=== PATIENT | male | born 1980 | race Two or more races ===

== ENCOUNTER 2024-09-05 08:20 | Emergency (ER) | payer MEDICAID, SELFPAY ==
[2024-09-05 08:29] VITALS: BP 130/84; PULSE 127; RESP 18; TEMP 38.1; O2SAT 97
--- NOTE | 2024-09-05 08:41 | XR_ITS ---
Examination: PA lateral chest 2 views TECHNIQUE: Upright PA lateral chest 2 views Exam date and time: September 05, 2024 0859 hours Comparison March 02, 2021 INDICATIONS: Coughing fever chest pain today FINDINGS: Normal heart size Lungs are clear. The osseous structures are intact IMPRESSION: No active disease
--- NOTE | 2024-09-05 08:42 | EDNOTE_ITS ---
Upper Respiratory Inf. RME/HPI General Chief Complaint: Flu Like Symptoms Stated Complaint: FEVER, SORE THROAT, GREENE, BODYACHES, SOB, BACK PAIN Time Seen by Provider: 09/05/24 08:41 Source: patient Arrival date/time: 09/05/24 08:20 43-year-old male with no known medical history presents to the emergency room with a chief complaint of a fever, sore throat, headache, shortness of breath x 2 days. Mode of arrival: ambulatory Limitations: no limitations Related Data Previous Rx's ?Medication ?Instructions ?Recorded ibuprofen 800 mg tablet 800 mg PO TID PRN pain #30 tabs 04/27/22 acetaminophen 325 mg capsule 650 mg (2 x 325 mg) PO QID PRN 09/05/24 fever or pain 7 days #30 caps penicillin V potassium 500 mg 500 mg PO BID 10 days #20 tabs 09/05/24 tablet Allergies Allergy/AdvReac Type Severity Reaction Status Date / Time No Known Allergies Allergy Verified 04/27/22 07:33 Review of Systems Review of Systems Systems Reviewed: All systems reviewed, normal except as documented Constitutional Constitutional: Reports system reviewed and no additional complaints, except as documented, Denies fatigue, Denies fever(s), Reports headache(s) and Denies weakness Eyes Eyes: Reports system reviewed and no additional complaints, except as documented, Denies blurry vision and Denies change in vision ENT Ears, Nose, Mouth, and Throat: Reports system reviewed and no additional complaints, except as documented, Denies otalgia, Reports headache(s), Reports nasal congestion, Reports sore throat and Denies vertigo Cardiovascular Cardiovascular: Reports system reviewed and no additional complaints, except as documented, Denies chest pain, Reports dyspnea and Denies dyspnea on exertion Respiratory Respiratory: Reports system reviewed and no additional complaints, except as documented, Reports chest congestion, Reports cough, Reports dyspnea, Denies dyspnea on exertion and Denies wheezing Gastrointestinal Gastrointestinal: Reports system reviewed and no additional complaints, except as documented, Denies abdominal pain, Denies cramping, Denies nausea and Denies vomiting Genitourinary Genitourinary: Reports system reviewed and no additional complaints, except as documented, Denies dysuria and Denies hematuria Musculoskeletal Musculoskeletal: Reports system reviewed and no additional complaints, except as documented and Denies back pain Integumentary/Breasts Skin/Breast: Reports system reviewed and no additional complaints, except as documented and Denies wounds Neurologic Neurologic: Reports system reviewed and no additional complaints, except as do cumented, Denies confusion, Reports headache(s), Denies lack of coordination, Denies vertigo and Denies weakness Psychiatric Psychiatric: Reports system reviewed and no additional complaints, except as documented, Denies anxiety, Denies confusion, Denies depression, Denies paranoia, Denies suicidal ideation and Denies tactile hallucinations Endocrine Endocrine: Reports system reviewed and no additional complaints, except as documented and Denies fatigue Hematologic/Lymphatic Hematologic/Lymphatic: Reports system reviewed and no additional complaints, except as documented and Denies lymphadenopathy Allergic/Immunologic Allergic/Immunologic: Reports system reviewed and no additional complaints, except as documented, Denies urticaria and Denies wheezing Past Medical History Past Medical History NEUROLOGIC: Positive Migraine and Head Trauma (CLINIC VISIT AT 14 YRS OLD FELL HAD HEAD STITCHES); Negative Neurological Disorders or Seizures CARDIAC: Negative Cardiac Disorders or Congestive Heart Failure RESPIRATORY: Negative Chronic Obstructive Pulmonary Disease (COPD) or Asthma GASTROINTESTINAL: Positive Gastrointestinal Disorders, Gall Bladder Disease, Hemorrhoids and Gastroesophageal Reflux Disease; Negative Hepatitis GENITOURINARY: Negative Genitourinary Disorders or Renal Disease MUSCULOSKELETAL: Positive Musculoskeletal Disorders ENT: Positive Head Trauma (CLINIC VISIT AT 14 YRS OLD FELL HAD HEAD STITCHES) ENDOCRINE: Negative Endocrine Disorders, Diabetes Mellitus Type 1 or Diabetes Mellitus Type 2 HEMATOLOGIC: Negative Blood Disorders or Sickle Cell Disease OTHER HISTORY: Positive Chicken Pox, Measles and Mumps; Negative Hospitalization, Autoimmune Disease, Shingles, Falls, Blood Transfusions, Blood Transfusion Reaction, Anesthesia Reactions, Chemotherapy, Radiation Therapy, MRSA or Cancer Family History FAMILY HISTORY: Positive Family Cardiac Disorders (mother-HTN); Negative Family Psychiatric Problems, Family Respiratory Disorders, Family Gastrointestinal Problems, Family Cancer, Family Surgery or Family Anesthesia Reaction Social History SMOKING STATUS: Never smoker ED Exam General Limitations: Present no limitations General appearance: Present alert and in no apparent distress Head Head exam: Present atraumatic Eye Eye exam: Present normal appearance, PERRL and EOMI ENT ENT exam: Present normal exam, normal oropharynx, mucous membranes moist, mucous membranes dry, TM's normal bilaterally and normal external ear exam Expanded ENT Exam Teeth exam: Present normal inspection Throat exam: Present tonsillar erythema and tonsillar exudate Neck Neck exam: Present normal inspection, full ROM and trachea midline Chest Chest inspection: Present normal inspection and symmetric chest wall rise Respiratory Respiratory exam: Present normal lung sounds bilaterally; Absent respiratory distress, wheezes, stridor, accessory muscle use or prolonged expiratory phase Cardiovascular Cardiovascular exam: Present regular rate, normal rhythm and normal heart sounds Abdominal Exam Abdominal exam: Present soft and normal bowel sounds Extremities Exam Extremities exam: Present normal inspection and full ROM Back Exam Back exam: Present normal inspection and full ROM Neurological Exam Neurological exam: Present alert, oriented X3 and CN II-XII intact Psychiatric Psychiatric exam: Present normal affect and normal mood Skin Skin exam: Present warm, dry, intact and normal color Course Quality Measures none Orders Category Date Time Status Bedside COVID-19 Antigen Test NOW Care 09/05/24 08:41 Completed Bedside Influenza A&B Antigen Test NOW Care 09/05/24 08:41 Completed XR chest 2V Stat Exams 09/05/24 08:41 Completed Strep A Rapid Stat Lab 09/05/24 08:53 Completed Acetaminophen Tab [Tylenol ES Tab] Med 09/05/24 08:41 Discontinued 1,000 mg PO X1 ONE Ketorolac Inj [Toradol Inj] Med 09/05/24 08:41 Discontinued 30 mg IM X1 ONE Vital Signs Vital signs: Vital Signs Temperature 100.5 F H 09/05/24 08:29 Pulse Rate 127 H 09/05/24 08:29 Respiratory Rate 18 09/05/24 08:29 Blood Pressure 130/84 09/05/24 08:29 Pulse Oximetry (%) 97 09/05/24 08:29 Oxygen Delivery Method Room Air 09/05/24 08:29 O2 saturation 97% within normal limits Upper Respiratory Infection MDM Narrative MDM Narrative:: 43-year-old male with no known medical history presents to the emergency room with a chief complaint of a fever, sore throat, headache, shortness of breath x 2 days. Clinically the patient appears nontoxic and in no apparent distress. Physical examination shows nasal congestion and an erythemic posterior pharynx with a cobblestone appearance with mild exudates to the right tonsillar pillar. Strep test was positive. COVID-19 and influenza were negative. Chest x-ray was negative. Patient was discharged and educated to follow-up with primary care provider and return to the emergency room for any evidence of worsening signs or symptoms Patient data External records reviewed:: [facility] previous records Clinical information provided by:: patient Social determinants that could affect healthcare access:: none Patient has the following chronic illnesses:: No chronic illness How is presenting disease/condition affected by chronic disease/condition?: no chronic disease Evaluation data The following diagnostics were reviewed and interpreted by me:: lab results and radiology exam(s) Lab and/or radiology exams considered but not ordered:: Labs and radiology exams considered and ordered Interpretation Summary: Chest x-ray-no pneumonic infiltrates Medications / Prescriptions Medications or Prescriptions considered but not ordered:: Medication given Medication administrations:: Medication Administration History Discontinued Medications Acetaminophen (Acetaminophen 500 Mg Tablet) 1,000 mg PO X1 ONE Stop: 09/05/24 08:42 Last Admin: 09/05/24 08:55 Dose: 1,000 mg Documented By: [facility] Ketorolac Tromethamine (Ketorolac Inj 60 Mg/2 Ml Vial) 30 mg IM X1 ONE Stop: 09/05/24 08:42 Last Admin: 09/05/24 08:56 Dose: 30 mg Documented By: [facility] Medication given Consultations Consultation(s) initiated? (list below): No Diagnosis Upper Respiratory Differential Diagnosis: upper respiratory infection, otitis media, sinusitis, viral infection, influenza and pharyngitis Most likely diagnosis given after review of the tests above:: Pharyngitis Admission Indicated Admission indicated?: not indicated Admission Request Was there a request for admission?: No Disposition Plan Disposition Plan: Discharge Discharge Attestation Discharge Attestation: The patient and all family members were given an opportunity to ask questions and understood the discharge instructions. Discharge instructions specifically effects, indications for sooner follow up or return to the emergency department, and the expected course of current diagnosis. Patient condition: Stable Discharge Plan Plan Patient Disposition: HOME (Self Care) Disposition Comment: Stable Prescriptions/Referrals Prescriptions/Med Rec: New penicillin V potassium 500 mg tablet 500 mg PO BID 10 Days Qty: 20 0RF acetaminophen 325 mg capsule 650 mg PO QID PRN (Reason: fever or pain) 7 Days Qty: 30 0RF No Action ibuprofen 800 mg tablet 800 mg PO TID PRN (Reason: pain) Qty: 30 0RF Referrals: Cayden Vaca PA-C [Primary Care Provider] - In 1 week Problem List Clinical Impression: Pharyngitis Patient/Caregiver Discharge Instructions Education Materials: Self-Care for Sore Throats, ED Pharyngitis, Report Pending Additional Instructions: Jil un seguimiento con parrish proveedor de atenci?n primaria en las pr?ximas 24 a 48 horas. Parrihs prueba de estreptococos reed positivo para marianna infecci?n. Los antibi?ticos fueron enviados a parrish farmacia por favor rec?jalos y t?melos emily se indica. Si hay evidencia de signos o s?ntomas que empeoran, regrese a la alondra de emergencias de inmediato. Print Language: English Stand Alone Forms: Ju Award Info., Patient Portal Info Letter PA/HEAD WAITER/WAITRESS Supervising Physician PA/HEAD WAITER/WAITRESS Supervising Physician: Dr Erazo
[2024-09-05 08:55] VITALS: TEMP 38.1
[2024-09-05] MEDS: ACETAMINOPHEN 500 MG TABLET 1000 MG PO (08:55)
[2024-09-05 08:56] VITALS: BMI 27.3
[2024-09-05] MEDS: KETOROLAC INJ 60 MG/2 ML VIAL 30 MG IM (08:56)
[2024-09-05 09:47] LABS: Strep A Rapid Positive (Negative)
== END 2024-09-05 10:13 | disposition home or self-care (01) ==
PROVIDERS: Nurse Practitioner Family; Emergency Provider Emergency Medicine; PCP Family Medicine
DX: J02.9 Acute pharyngitis, unspecified (principal)
CPT/HCPCS: 71046; 87400; 87651; 87811; 96372; 99283; J1885; A9270

== ENCOUNTER 2025-01-19 07:29 | Emergency (ER) | payer MEDICAID, SELFPAY ==
[2025-01-19 07:38] VITALS: BP 121/79; PULSE 73; RESP 16; TEMP 37.1; O2SAT 98; BMI 27.4
--- NOTE | 2025-01-19 07:41 | XR_ITS ---
Examination: CT abdomen and pelvis without contrast. Coronal 3-D reconstructions. Sagittal 2-D reconstructions. Date and time of exam:January 19, 2025 0845 hours Comparison November 01, 2021 CTDI: vol (mGy): 7.52 DLP: (mGycm): 489 Technique: Axial images of the abdomen have been obtained, 3 mm slice thickness Intravenous contrast material has not been administered. Low dose protocols were performed. One or more of the following dose reduction techniques were used; automated exposure control, adjustment of the mA and/or KV according to patient size, use of iterative reconstruction technique. Findings: No renal or ureteral calculi Absent gallbladder No pancreatic or adrenal mass Mild renal parenchymal scar formation Bilateral renal calculi, the largest left kidney 7 mm No hydronephrosis although 2 mm left ureterovesical junction calculus Normal appendix No bowel obstruction No prostatomegaly IMPRESSION: Bilateral renal calculi No hydronephrosis, although 2 mm left ureterovesical junction calculus
--- NOTE | 2025-01-19 07:42 | EDNOTE_ITS ---
ED Abdominal Pain RME/HPI General Chief Complaint: Abdominal Pain Stated complaint: LLQ ABD PAIN Time seen by provider: 01/19/25 07:44 Arrival date/time: 01/19/25 07:29 44-year-old male with no known medical history presents to the emergency room with a chief complaint of left-sided flank pain that radiates to his left lower quadrant, dysuria and urinary dribbling x 2 days Source: patient Mode of arrival: ambulatory Limitations: no limitations Related Data Previous Rx's ?Medication ?Instructions ?Recorded ibuprofen 800 mg tablet 800 mg PO TID PRN pain #30 t abs 04/27/22 hydrocodone 5 mg-acetaminophen 325 1 tab PO BID PRN pa in #10 tabs 01/19/25 mg tablet nitrofurantoin 100 mg PO Q12H 5 days #10 ca ps 01/19/25 monohydrate/macrocrystals 100 mg capsule (Macrobid) tamsulosin 0.4 mg capsule (Flomax) 0.4 mg PO QDAY #14 caps 01/19/25 Allergies Allergy/AdvReac Type Severity Reaction Status Date / Time No Known Allergies Allergy Verified 04/27/22 07:33 Review of Systems Review of Systems Systems Reviewed: All systems reviewed, normal except as documented Constitutional Constitutional: Reports system reviewed and no additional complaints, except as documented, Denies fatigue, Denies fever(s), Denies headache(s) and Denies weakness Eyes Eyes: Reports system reviewed and no additional complaints, except as documented, Denies blurry vision and Denies change in vision ENT Ears, Nose, Mouth, and Throat: Reports system reviewed and no additional complaints, except as documented, Denies otalgia, Denies headache(s), Denies nasal congestion, Denies throat swelling and Denies vertigo Cardiovascular Cardiovascular: Reports system reviewed and no additional complaints, except as documented, Denies chest pain, Denies dyspnea and Denies dyspnea on exertion Respiratory Respiratory: Reports system reviewed and no additional complaints, except as documented, Denies chest congestion, Denies cough, Denies dyspnea, Denies dyspnea on exertion and Denies wheezing Gastrointestinal Gastrointestinal: Reports system reviewed and no additional complaints, except as documented, Denies abdominal pain, Denies cramping, Denies nausea and Denies vomiting Genitourinary Genitourinary: Reports system reviewed and no additional complaints, except as documented, Reports dysuria and Denies hematuria Musculoskeletal Musculoskeletal: Reports system reviewed and no additional complaints, except as documented and Reports back pain Integumentary/Breasts Skin/Breast: Reports system reviewed and no additional complaints, except as documented and Denies wounds Neurologic Neurologic: Reports system reviewed and no additional complaints, except as documented, Denies confusion, Denies headache(s), Denies lack of coordination, Denies vertigo and Denies weakness Psychiatric Psychiatric: Reports system reviewed and no additional complaints, except as documented, Denies anxiety, Denies confusion, Denies depression, Denies paranoia, Denies suicidal ideation and Denies tactile hallucinations Endocrine Endocrine: Reports system reviewed and no additional complaints, except as documented and Denies fatigue Hematologic/Lymphatic Hematologic/Lymphatic: Reports system reviewed and no additional complaints, exc ept as documented and Denies lymphadenopathy Allergic/Immunologic Allergic/Immunologic: Reports system reviewed and no additional complaints, except as documented, Denies throat swelling, Denies urticaria and Denies wheezing Past Medical History Past Medical History NEUROLOGIC: Positive Migraine and Head Trauma (CLINIC VISIT AT 14 YRS OLD FELL HAD HEAD STITCHES); Negative Neurological Disorders or Seizures CARDIAC: Negative Cardiac Disorders or Congestive Heart Failure RESPIRATORY: Negative Chronic Obstructive Pulmonary Disease (COPD) or Asthma GASTROINTESTINAL: Positive Gastrointestinal Disorders, Gall Bladder Disease, Hemorrhoids and Gastroesophageal Reflux Disease; Negative Hepatitis GENITOURINARY: Negative Genitourinary Disorders or Renal Disease MUSCULOSKELETAL: Positive Musculoskeletal Disorders ENT: Positive Head Trauma (CLINIC VISIT AT 14 YRS OLD FELL HAD HEAD STITCHES) ENDOCRINE: Negative Endocrine Disorders, Diabetes Mellitus Type 1 or Diabetes Mellitus Type 2 HEMATOLOGIC: Negative Blood Disorders or Sickle Cell Disease OTHER HISTORY: Positive Chicken Pox, Measles and Mumps; Negative Hospitalization, Autoimmune Disease, Shingles, Falls, Blood Transfusions, Blood Transfusion Reaction, Anesthesia Reactions, Chemotherapy, Radiation Therapy, MRSA or Cancer Family History FAMILY HISTORY: Positive Family Cardiac Disorders (mother-HTN); Negative Family Psychiatric Problems, Family Respiratory Disorders, Family Gastrointestinal Problems, Family Cancer, Family Surgery or Family Anesthesia Reaction Social History SMOKING STATUS: Never smoker ED Exam General Limitations: Present no limitations General appearance: Present alert and in no apparent distress Head Head exam: Present atraumatic Eye Eye exam: Present normal appearance, PERRL and EOMI ENT ENT exam: Present normal exam, normal oropharynx and mucous membranes moist Neck Neck exam: Present normal inspection, full ROM and trachea midline Chest Chest inspection: Present normal inspection and symmetric chest wall rise Respiratory Respiratory exam: Present normal lung sounds bilaterally Cardiovascular Cardiovascular exam: Present regular rate, normal rhythm and normal heart sounds Abdominal Exam Abdominal exam: Present soft and normal bowel sounds Abdominal tenderness: Present LLQ and mild Extremities Exam Extremities exam: Present normal inspection and full ROM Back Exam Back exam: Present normal inspection, full ROM and CVA tenderness (L) Neurological Exam Neurological exam: Present alert, oriented X3 and CN II-XII intact Psychiatric Psychiatric exam: Present normal affect and normal mood Skin Skin exam: Present warm, dry, intact and normal color Course Quality Measures none Orders Category Date Time Status CT abdomen pelvis wo con Stat Exams 01/19/25 07:41 Completed CBC Stat Lab 01/19/25 07:55 Completed CMP [Comprehensive Metabolic Panel] Stat Lab 01/19/25 07:55 Completed Chlamydia/GC/TV - PCR Stat Lab 01/19/25 08:48 Received Lipase Stat Lab 01/19/25 07:55 Completed UA [Urinalysis] Stat Lab 01/19/25 08:48 Completed Urine Culture Stat Lab 01/19/25 08:48 Received Ketorolac Inj [Toradol Inj] Med 01/19/25 07:41 Discontinued 30 mg IM X1 ONE Vital Signs Vital signs: Vital Signs Temperature 98.7 F 01/19/25 07:38 Pulse Rate 73 01/19/25 07:38 Respiratory Rate 16 01/19/25 07:38 Blood Pressure 121/79 01/19/25 07:38 Pulse Oximetry (%) 98 01/19/25 07:38 Oxygen Delivery Method Room Air 01/19/25 07:38 O2 saturation 98% within normal limits Abdominal Pain MDM MDM Narrative MDM Narrative:: 44-year-old male with no known medical history presents to the emergency room with a chief complaint of left-sided flank pain that radiates to his left lower quadrant, dysuria and urinary dribbling x 2 days Patient is hemodynamically stable in no apparent distress. The patient is afebrile not tachycardic not tachypneic Physical examination shows left-sided CVA tenderness with palpation as well as left lower quadrant abdominal pain and tenderness that is intermittent. CT of the abdomen and pelvis was completed and found some bilateral renal calculi as well as a 2 mm stone at the ureteral vesicle junction The patient's urine showed some hematuria as well as some bacteria. Antibiotics were sent to the patient's pharmacy. During reevaluation patient states his pain has significantly decreased. Patient was educated to follow-up with his primary care provider and return to the emergency room for any evidence of worsening signs or symptoms Patient data External records reviewed:: [facility] previous records Clinical information provided by:: patient Social determinants that could affect healthcare access:: none Patient has the following chronic illnesses:: No chronic illness How is presenting disease/condition affected by chronic disease/condition?: no chronic disease Evaluation data The following diagnostics were reviewed and interpreted by me:: lab results and radiology exam(s) Lab and/or radiology exams considered but not ordered:: Labs and radiology exams considered and ordered Interpretation Summary: CT abdomen and pelvis-Findings: No renal or ureteral calculi Absent gallbladder No pancreatic or adrenal mass Mild renal parenchymal scar formation Bilateral renal calculi, the largest left kidney 7 mm No hydronephrosis although 2 mm left ureterovesical junction calculus Normal appendix No bowel obstruction No prostatomegaly IMPRESSION: Bilateral renal calculi No hydronephrosis, although 2 mm left ureterovesical junction calculus Medications / Prescriptions Medications or Prescriptions considered but not ordered:: Medication given Medication administrations:: Medication Administration History Discontinued Medications Ketorolac Tromethamine (Ketorolac Inj 60 Mg/2 Ml Vial) 30 mg IM X1 ONE Stop: 01/19/25 07:42 Last Admin: 01/19/25 08:00 Dose: 30 mg Documented By: RD Medication given Consultations Consultation(s) initiated? (list below): No Diagnosis Differential diagnosis abdominal pain: abdominal pain, calculus of kidney, gastroenteritis and other (Urinary tract infection) Most likely diagnosis given after review of the tests above:: Urinary tract infection/kidney stone Admission Indicated Admission indicated?: not indicated Admission Request Was there a request for admission?: No Disposition Plan Disposition Plan: Discharge Discharge Attestation Discharge Attestation: The patient and all family members were given an opportunity to ask questions and understood the discharge instructions. Discharge instructions specifically effects, indications for sooner follow up or return to the emergency department, and the expected course of current diagnosis. Patient condition: Stable Discharge Plan Plan Patient Disposition: HOME (Self Care) Discharge Disposition comment: Stable Prescriptions/Referrals Prescriptions/Med Rec: New tamsulosin [Flomax] 0.4 mg capsule 0.4 mg PO QDAY Qty: 14 0RF hydrocodone-acetaminophen 5-325 mg tablet 1 tab PO BID MDD 10mg PRN (Reason: pain) Qty: 10 0RF nitrofurantoin monohyd/m-cryst [Macrobid] 100 mg capsule 100 mg PO Q12H 5 Days Qty: 10 0RF Rx Instructions: must administer with a meal/food No Action ibuprofen 800 mg tablet 800 mg PO TID PRN (Reason: pain) Qty: 30 0RF Referrals: Cayden Vaca PA-C [Primary Care Provider] - In 1 week Problem List Clinical Impression: Kidney stone on left side, Urinary tract infection Patient/Caregiver Discharge Instructions Education Materials: ED Hematuria, ED Kidney Stone w/ Colic Additional Instructions: Por favor, consulte con foley m?dico de cabecera en las pr?ximas 24 a 48 horas. Tiene un c?lculo renal en el ur?ter jolly. [place] le est? causando dolor. El c?lculo mide solo 2 mm y podr? expulsarlo. Se le envi? un medicamento a foley farmacia para ayudarle con los s?ntomas. Si observa cualquier signo de empeoramiento de los signos o s?ntomas, acuda a urgencias de inmediato. Print Language: Thai Stand Alone Forms: Ju Award Info., Patient Portal Info Letter PA/MARKETING RESEARCH INTERN Supervising Physician PA/CAYETANO Supervising Physician: Dr. Abad
[2025-01-19] MEDS: KETOROLAC INJ 60 MG/2 ML VIAL 30 MG IM (08:00)
[2025-01-19 08:08] LABS: Basophils % (Auto) 1 % (0-2.5); Eosinophils # (Auto) 0.1 Thou/mm3 (0.0-0.5); Eosinophils % (Auto) 1 % (0-10); Hematocrit 41.1 % (41.0-53.0); Hemoglobin 14.8 g/dL (13.5-16.0); Immature Granulocytes % (Auto) 0 % (0-0); Immature Granulocytes Auto 0.02 Thou/mm3 (0.00-0.00); Lymphocytes # (Auto) 1.2 Thou/mm3 (1.0-4.8); Lymphocytes % (Auto) 22 % (10-50); Mean Corpuscular Hemoglobin 32.2 pg (25.0-35.0); Mean Corpuscular Volume 89 fL (80-100); Monocytes # (Auto) 0.3 Thou/mm3 (0.0-0.8); Monocytes % (Auto) 6 % (0-12); Neutrophils % (Auto) 70 % (37-80); Nucleated Red Blood Cell % 0 /100 WBC (0); Platelet Count 204 Thou/mm3 (140-440); RDW Standard Deviation 42.5 fL (35.1-43.9); White Blood Count 5.7 Thou/mm3 (3.8-10.6)
[2025-01-19 08:29] LABS: Alanine Aminotransferase 26 U/L (10-49); Albumin, Serum 4.3 gm/dL (3.5-5.0); Albumin/Globulin Ratio 1.5 (1.2-2.2); Alkaline Phosphatase 79 U/L (46-116); Anion Gap 11 (7-16); Aspartate Amino Transferase 21 U/L (0-34); BUN/Creatinine Ratio 18 Ratio (12-20); Bilirubin,Total 0.6 mg/dL (0.3-1.2); Blood Urea Nitrogen 16 mg/dL (9-23); Calcium 8.7 mg/dL (8.3-10.6); Calcium (Corrected) 8.7 mg/dL (8.5-10.1); Carbon Dioxide 24.8 mMol/L (20.0-31.0); Chloride 106 mMol/L (98-107); Creatinine (Component) 0.9 mg/dL (0.6-1.3); Estimated Creatinine Clearance 101.3 mL/min (>60); Globulin 2.8 gm/dL (2.3-3.5); Glucose 136 mg/dL (74-106); Lipase 35 U/L (12-53); Osmolality,Calculated 286 (275-295); Potassium 3.9 mMol/L (3.4-5.1); Sodium 142 mMol/L (136-145); Total Protein 7.1 gm/dL (5.7-8.2); eGFR > 60 See Note
[2025-01-19 09:01] LABS: Collection Type, Urine Clean Catch; Squamous Epithelial Cell,Urine 0 /hpf (0-5)
[2025-01-19 09:16] LABS: Amorphous Crystals,Urine Present (Absent); Bilirubin,Urine Negative (Negative); Blood,Urine 3+ (Negative); Color,Urine Yellow (Lt Yel-Yel); Glucose, Urine Negative (Negative); Ketones,Urine Negative (Negative); Leukocyte Esterase,Urine Negative (Negative); Nitrite,Urine Negative (Negative); Protein,Urine Negative (Neg - Trace); RBC,Urine 253 /hpf (0-3); Specific Gravity,Urine 1.022 (1.001-1.035); Urobilinogen,Urine Negative mg/dL (0.0-1.0); WBC,Urine 10 /hpf (0-5)
[2025-01-19 09:17] LABS: Clarity,Urine Hazy (Clear/Hazy)
[2025-01-19 10:26] VITALS: BP 128/82; PULSE 77; RESP 16; O2SAT 99
[2025-01-19 12:26] LABS: Chlamydia trachomatis PCR Negative (Not Detect); Neisseria Gonorrhoeae DNA PCR Negative (Not Detect); Trichomonas Negative (Negative)
== END 2025-01-19 10:57 | disposition home or self-care (01) ==
PROVIDERS: Nurse Practitioner Family; Emergency Provider Family Medicine; PCP Family Medicine
DX: N20.2 Calculus of kidney with calculus of ureter (principal); N39.0 Urinary tract infection, site not specified
CPT/HCPCS: 36415; 74176; 80053; 81001; 83690; 85025; 87086; 87491; 87591; 87661; 96372; 99284; J1885